=== PATIENT | male | born 1985 | race Caucasian/White ===

== ENCOUNTER 2022-11-24 13:48 | Emergency (ER) | payer SELFPAY ==
[~2022-11-24] VITALS: Ht 177.8 cm; Wt 95.3 kg
[2022-11-24 14:45] VITALS: BP 133/72; PULSE 98; RESP 18; TEMP 98; O2SAT 98
[2022-11-24] MEDS ORDERED: MOTRIN PO STA (16:09)
[2022-11-24] MEDS ORDERED: MOTRIN ONE (16:14)
[2022-11-24 16:15] VITALS: BP 127/96; PULSE 81; RESP 16; O2SAT 96
== END 2022-11-24 16:15 | disposition home or self-care (01) ==
LOC: ER 13:48
DX: M25.561 Pain in right knee (principal); F12.90 Cannabis use, unspecified, uncomplicated; Z88.5 Allergy status to narcotic agent; Z88.8 Allergy status to other drugs, medicaments and biological substances
CPT/HCPCS: 99283; 73562-RT